=== PATIENT | female | born 1955 | race Caucasian/White ===

== ENCOUNTER 2020-05-19 08:02 | Emergency (ER) | payer OTHER, SELFPAY ==
[2020-05-19 08:03] VITALS: BP 148/70; PULSE 73; RESP 16; TEMP 36.8; O2SAT 96; BMI 33.4
[2020-05-19 08:08] VITALS: BP 148/70; PULSE 73; RESP 16; TEMP 36.8; O2SAT 96
--- NOTE | 2020-05-19 08:09 | RAD_ITS ---
STUDY: X-RAY CHEST REASON FOR EXAM: Female, 65 years old. Fever, body aches, loss of taste and smell, MENDEZ, muscle pain -- x 6-7 days TECHNIQUE: AP COMPARISON: None. FINDINGS: EKG leads project over the chest. The lungs are clear and expanded. There is no demonstrated pleural abnormality. Normal size heart. Normal mediastinum and adam. Normal visualized pulmonary arteries. Normal visualized aortic arch and descending thoracic aorta. There are diffuse degenerative changes of the visualized thoracic spine. Normal visualized ribs, clavicles, and shoulders. There is no demonstrated abnormality of the visualized soft tissue structures of the upper abdomen. RAD/Chest 1 View (Portable) IMPRESSION: Nonacute portable x-ray examination of the chest. Electronically Signed: Clive Mendez MD (Brooks) at 9:21 EDT , Service support ,
--- NOTE | 2020-05-19 08:09 | EKG12_ITS ---
Test Reason : GENERAL ILLNESS Blood Pressure : / mmHG Vent. Rate : 070 BPM Atrial Rate : 070 BPM P-R Int : 154 ms QRS Dur : 100 ms QT Int : 404 ms P-R-T Axes : 042 -41 050 degrees QTc Int : 436 ms Normal sinus rhythm Left axis deviation Minimal voltage criteria for LVH, may be normal variant Poor R- wave Progression Abnormal ECG Confirmed by GILLIAN MASON, ARTURO ([id number]), photography editor ROMULO EM ([id number]) on 05/21/2020 12:58:01 PM Referred By: Confirmed By:ARTURO FRENCH MD
[2020-05-19 08:10] VITALS: RESP 16
[2020-05-19 08:12] VITALS: O2SAT 96
--- NOTE | 2020-05-19 08:13 | ED.VISSUMM ---
- ER Visit Summary Date of Service: 05/19/20 Chief Complaint: Fever, cough History of Present Illness: The patient is a 65 F presenting with fever, cough. Patient states she went to a wedding approximately 10 days ago. She states no one at the wedding was wearing a mask. 3 days following the wedding she started having a cough. She felt okay other than a cough for several days. She then started having body aches, fever. She lost her sense of taste and smell. She has had diarrhea. She took aspirin and Aleve prior to arrival. She denies chest pain. Denies other complaints. Her and 2 daughters who live with her also have symptoms of viral illness. Physical Examination: Vitals are stable. Patient is afebrile. Alert no acute distress. Pulse ox 96% on room air. HEENT exam is unremarkable. Neck is supple. Lungs are clear and equal bilaterally. Heart is regular rate and rhythm. Abdomen is soft nontender nondistended. Extremities are unremarkable. Skin is warm and dry. No focal neurologic deficit. Remainder of exam is unremarkable. Emergency Department Course and Treatment: Patient was given IV fluids. EKG is sinus rhythm rate of 70 with no acute ischemic changes. CBC shows white count 3.5, platelet 137. Chemistries unremarkable. Urinalysis unremarkable. Troponin is negative. Chest x-ray shows no acute process. Patient feels improved following fluids. Her ambulatory pulse ox is 96% on room air. She is advised to quarantine and social distance. COVID test was sent. Advised to follow-up with PCP. Advised return to ED for worsening complaints. Disposition: Discharge home Impression: Viral illness, suspect COVID This note was generated with Pinpoint MD dictation software. It may contain incorrect words, spelling, and punctuation that were not noted in review of the chart prior to signing
[2020-05-19] MEDS: 0.9% Normal Saline 1,000 ML 1000 ML IV (08:28)
[2020-05-19 08:37] LABS: Absolute Neutrophil Count 2.7 X10^3/uL (2.0-7.7); Basophil# 0.01 X10^3/uL; Basophil% 0.3 % (0-1); Hemoglobin 13.1 g/dL (12.0-15.0); Lymphocyte % 17.3 % (19-41); Mean Corp Hgb Conc 32.8 g/dL (32-36); Mean Corpuscular Hgb 29.7 pg (27.0-32.0); Mean Corpuscular Volume 90.7 fL (81-99); Mean Platelet Vol. 9.9 fl (6.2-12.0); Monocyte# 0.18 X10^3/uL; Monocyte% 5.2 % (0-10); NRBC Flagged by Analyzer 0 % (0-5); Neutrophil # 2.67 X10^3/uL (2.7-7.7); Neutrophil % 77.2 % (47-70); POSITIVE DIFFERENTIAL YES; POSITIVE MORPHOLOGY YES; Platelet Count 137 K/mm3 (150-450); RBC Distribution Width CV 12.9 % (11.6-14.6); RBC Distribution Width SD 43.1 fl (35.1-43.9); Red Blood Count 4.41 M/mm3 (4.2-5.4); White Blood Count 3.5 K/mm3 (4.4-11.0)
[2020-05-19 08:38] LABS: Differential Indicated SCAN CRITERIA MET
[2020-05-19 09:02] LABS: Differential Comment SCANNED
[2020-05-19 09:35] LABS: Bacteria 0 SEEN /hpf (None Seen); Mucous, Urine 0 SEEN /hpf (<or=2+); Red Blood Cells-Urine 0 SEEN /hpf (0-5)
[2020-05-19 09:39] LABS: Color, Urine Yellow (Yellow); Glucose, Dipstick Normal (Normal); Ketone-Dipstick Negative (Negative); Leukocyte Esterase-Dipstick 100 /ul (Negative); Nitrite-Dipstick Negative (Negative); Occult Blood-Urine Negative /ul (Negative); Protein-Dipstick Negative (Negative); Urine Bilirubin Dipstick Negative (Negative); Urine Clarity Clear (Clear); Urine Urobilinogen Normal (Normal)
[2020-05-19 09:41] LABS: Anion Gap 4 (5-15); BUN 13 mg/dL (7-18); BUN/Creat Ratio 18.4 RATIO (10-20); Calcium,Total 8.1 mg/dL (8.5-10.1); Chloride 107 mmol/L (98-107); Creatinine, Serum 0.71 mg/dL (0.55-1.02); EST Glomerular Filtration Rate 89 mL/min (>60); Est Glom Filt Rate - Afr Amer 107 mL/min (>60); Estimated Creatinine Clearance 63.31 ml/min; Glucose 102 mg/dL (74-106); Potassium 3.9 mmol/L (3.5-5.1); Sodium Level 138 mmol/L (136-145)
[2020-05-19 09:59] LABS: Squamous Epithelial Cells - UA 0-5 SEEN /hpf (5-10); White Blood Cells 0-5 SEEN /hpf (0-5)
--- NOTE | 2020-05-19 10:12 | ED.DEP ---
ED Disposition - Plan for ED Patient: Instructions: ED Viral Syndrome Referrals: Zeus Ahuja DO [Primary Care Provider] -
[2020-05-19 10:35] VITALS: BP 154/77; PULSE 73; RESP 18; O2SAT 98
[2020-05-20 12:05] LABS: Pathologist Review Reviewed
== END 2020-05-19 10:38 | disposition home or self-care (01) ==
PROVIDERS: Emergency Provider Emergency Medicine; PCP Family Medicine
DX: U07.1 COVID-19 (principal)
CPT/HCPCS: 71045; 80048; 81001; 84484; 85025; 87635; 93005; 99285; J7030; U0003

== ENCOUNTER 2021-02-17 19:14 | Emergency (ER) | payer OTHER, SELFPAY ==
[2021-02-17 19:15] VITALS: BP 192/85; PULSE 80; RESP 14; TEMP 36.6; O2SAT 99; BMI 35.0
[2021-02-17 20:09] LABS: Absolute Lymphocyte Count 0.88 X10^3/uL (0.83-4.51); Absolute Neutrophil Count 3.4 X10^3/uL (2.0-7.7); Basophil# 0.01 X10^3/uL; Basophil% 0.2 % (0-1); Eosinophil# 0.08 X10^3/uL; Eosinophils% 1.6 % (0-5); Hematocrit 35.5 % (37-47); Hemoglobin 11.4 g/dL (12.0-15.0); Lymphocyte # 0.88 X10^3/ul (0.83-4.51); Mean Corp Hgb Conc 32.1 g/dL (32-36); Mean Corpuscular Hgb 30.7 pg (27.0-32.0); Mean Corpuscular Volume 95.7 fL (81-99); Mean Platelet Vol. 9.9 fl (6.2-12.0); Monocyte# 0.53 X10^3/uL; Monocyte% 10.8 % (0-10); NRBC Flagged by Analyzer 0 % (0-5); Neutrophil # 3.37 X10^3/uL (2.7-7.7); Platelet Count 195 K/mm3 (150-450); RBC Distribution Width CV 13.2 % (11.6-14.6); RBC Distribution Width SD 46.9 fl (35.1-43.9); Red Blood Count 3.71 M/mm3 (4.2-5.4); White Blood Count 4.9 K/mm3 (4.4-11.0)
--- NOTE | 2021-02-17 20:12 | EX.ED.DYSGE1 ---
HPI History of Present Illness Chief Complaint: Abd Pain Informant: patient Narrative Narrative: Patient is a 65-year-old previously healthy female who presents to the emergency department for diarrhea that started 3 days ago. She states she had around 6 episodes the first day. Has been mildly improving but returned tonight with multiple episodes. This is nonbloody diarrhea. No melena. She has not been nauseous or vomiting. She does get abdominal discomfort with this. She denies any significant abdominal pain. No back pain. No urinary symptoms. She has had subjective fevers and chills. She denies a cough. No chest pain, shortness of breath. She has been feeling mildly lightheaded. No known sick contacts. No recent travel or antibiotic use. PFSH [facility] Home Medications NK 05/19/20 [History Last Taken Unknown] Allergy/AdvReac Type Severity Reaction Status Date / Time No Known Allergies Allergy Verified 02/17/21 19:15 Social History Smoking Status: Never smoker ROS ROS ED Eyes Eyes: Denies change in vision ENT ENT ED: Denies epistaxis or rhinorrhea Cardiovascular Cardiovascular: Denies chest pain or palpitations Respiratory/Chest Respiratory/Chest: Denies cough, dyspnea or dyspnea on exertion Gastrointestinal Gastrointestinal: Reports diarrhea; Denies abdominal pain, constipation, melena, nausea or vomiting Genitourinary Genitourinary ED: Denies dysuria, hematuria or urinary frequency Musculoskeletal Musculoskeletal: Denies back pain or neck pain Integumentary Denies rash Neurologic Neurologic: Denies dizziness, headache(s) or weakness EXAM Physical Exam Const Vital Signs: 02/17/21 19:15 Temperature 98 F Temperature Source Temporal Pulse Rate 80 Respiratory Rate 14 Blood Pressure 192/85 H Blood Pressure Mean 120 Pulse Ox 99 Oxygen Delivery Method Room Air Positive well nourished and well developed General Appearance ED: well developed and NAD HEENT Reports normocephalic and head/scalp atraumatic Eyes PERRL and EOMs intact bilaterally Neck supple Resp normal respiratory effort and clear to auscultation bilaterally Auscultation: Negative for rales, rhonchi or wheezes Cardio regular rate, regular rhythm and no murmurs GI normal to inspection, nondistended, normoactive bowel sounds and non-tender Palpation: soft; Negative for guarding or rebound tenderness present Back/Spine no CVA tenderness Extremity normal to inspection General Extremety ED: Negative for edema or tenderness General Extremity: Negative for edema Neuro no sensory deficits noted Sensorium / Orientation: alert Motor Exam: strength 5/5 throughout Psych mental status grossly normal Skin no rashes or lesions noted MDM MDM MDM Narrative Medical decision making narrative: Patient presents to the ED for diarrhea over the past 3 days. Upon arrival to the emerge department she is hypertensive. Otherwise normal vital signs. She is had subjective fevers but she is afebrile here. Will check basic lab work and check stool cultures. I do not feel IV fluid is indicated at this time as she has normal vital signs, not tachycardic or hypotensive. She does not appear clinically dehydrated. Will check electrolyte status. Patient's lab work revealed her to be mildly anemic. Her chloride was mildly high but otherwise no significant electrolyte abnormality. Patient resting comfortably throughout ED stay. Stool sample obtained. Will contact if anything comes back positive. Recommend symptomatic treatment in the meantime. She is to follow-up with her PCP. Return precautions are reviewed including developing any systemic symptoms, severe abdominal pain. She understands and is agreeable this plan. Discharged home in stable condition. All questions were answered. Lab Data Labs: Laboratory Results - last 24 hr 02/17/21 02/17/21 19:55 19:55 WBC 4.9 RBC 3.71 L Hgb 11.4 L Hct 35.5 L MCV 95.7 MCH 30.7 MCHC 32.1 RDW Std Deviation 46.9 H RDW Coeff of [place] 13.2 Plt Count 195 MPV 9.9 Immature Gran % (Auto) 0.400 Neut % (Auto) 69.0 Lymph % (Auto) 18.0 L [place] % (Auto) 10.8 H Eos % (Auto) 1.6 Baso % (Auto) 0.2 Absolute Neuts (auto) 3.4 Absolute Lymphs (auto) 0.88 Nucleated RBC % 0 Sodium 144 Potassium 4.0 Chloride 112 H Carbon Dioxide 28.0 Anion Gap 4 L BUN 8 Creatinine 0.71 Estim Creat Clear Calc 63.31 Est GFR (MDRD) Af Amer 106 Est GFR (MDRD) Non-Af 87 BUN/Creatinine Ratio 11.2 Glucose 103 Calcium 8.5 Total Bilirubin 0.30 AST 21 ALT 20 Alkaline Phosphatase 69 Total Protein 6.9 Albumin 3.5 Globulin 3.4 Albumin/Globulin Ratio 1.0 Discharge Plan Triage Chief Complaint: Abd Pain ED Provider: Broderick Fermin Dx/Rx/DC Orders Clinical Impression: Diarrhea Instructions: ED Diarrhea, Unknown Cause Prescriptions: No Action NK RF: 0 Primary Care Provider: Zeus Ahuja Referrals: Zeus Ahuja, [Primary Care Provider] - 3-5 Days if not improving Disposition Disposition: Home, Self Care
[2021-02-17 20:26] LABS: AST(SGOT) 21 U/L (15-37); Alanine Aminotransfer ALT/SGPT 20 U/L (13-56); Albumin, Serum 3.5 g/dL (3.2-5.0); Alkaline Phosphatase 69 U/L (45-117); Anion Gap 4 (5-15); BUN 8 mg/dL (7-18); BUN/Creat Ratio 11.2 RATIO (10-20); Calcium,Total 8.5 mg/dL (8.5-10.1); Chloride 112 mmol/L (98-107); Creatinine, Serum 0.71 mg/dL (0.55-1.02); EST Glomerular Filtration Rate 87 mL/min (>60); Est Glom Filt Rate - Afr Amer 106 mL/min (>60); Estimated Creatinine Clearance 63.31 ml/min; Globulin 3.4 g/dL (2.2-4.2); Glucose 103 mg/dL (74-106); Protein, Total 6.9 g/dL (6.4-8.2); Sodium Level 144 mmol/L (136-145)
--- NOTE | 2021-02-18 11:12 | ED.RN ---
MICRO RESULT CAME BACK TODAY FOR CAMPYLOBACTER IN STOOL. PT CALLED AND INFORMED OF RESULT. PT INFORMED THE ER PHYSICIAN IS PRESCRIBING AZITHROMYCIN FOR THREE DAY AND IT WOULD BE SENT TO THE PHARMACY OF HER CHOICE.
== END 2021-02-17 21:27 | disposition home or self-care (01) ==
PROVIDERS: Emergency Provider Emergency Medicine; PCP Family Medicine
DX: R19.7 Diarrhea, unspecified (principal); R10.9 Unspecified abdominal pain
CPT/HCPCS: 80053; 85025; 87493; 87506; 99283; A4216

== ENCOUNTER 2021-02-23 17:59 | Emergency (ER) | payer OTHER, SELFPAY ==
[2021-02-23 17:59] VITALS: BP 167/84; PULSE 77; RESP 18; TEMP 36.6; O2SAT 97; BMI 33.7
[2021-02-23 18:54] VITALS: BP 167/84; PULSE 77; RESP 18; TEMP 36.6; O2SAT 97
[2021-02-23 18:56] LABS: Bacteria 0 SEEN /hpf (None Seen); Mucous, Urine 0 SEEN /hpf (<or=2+); Red Blood Cells-Urine 0 SEEN /hpf (0-5); White Blood Cells 0 SEEN /hpf (0-5)
[2021-02-23 18:58] LABS: Absolute Lymphocyte Count 1.12 X10^3/uL (0.83-4.51); Basophil# 0.04 X10^3/uL; Basophil% 0.5 % (0-1); Eosinophil# 0.08 X10^3/uL; Hematocrit 38.3 % (37-47); Hemoglobin 12.8 g/dL (12.0-15.0); Lymphocyte # 1.12 X10^3/ul (0.83-4.51); Lymphocyte % 14.3 % (19-41); Mean Corp Hgb Conc 33.4 g/dL (32-36); Mean Corpuscular Hgb 30.8 pg (27.0-32.0); Mean Corpuscular Volume 92.3 fL (81-99); Mean Platelet Vol. 9.7 fl (6.2-12.0); Monocyte# 0.46 X10^3/uL; Monocyte% 5.9 % (0-10); NRBC Flagged by Analyzer 0 % (0-5); Neutrophil # 6.02 X10^3/uL (2.7-7.7); Neutrophil % 76.9 % (47-70); Platelet Count 269 K/mm3 (150-450); RBC Distribution Width CV 12.9 % (11.6-14.6); RBC Distribution Width SD 43.4 fl (35.1-43.9); Red Blood Count 4.15 M/mm3 (4.2-5.4); White Blood Count 7.8 K/mm3 (4.4-11.0)
[2021-02-23 18:59] LABS: Color, Urine Yellow (Yellow); Glucose, Dipstick Normal (Normal); Ketone-Dipstick Negative (Negative); Leukocyte Esterase-Dipstick Negative /ul (Negative); Nitrite-Dipstick Negative (Negative); Occult Blood-Urine Negative /ul (Negative); Protein-Dipstick Negative (Negative); Urine Bilirubin Dipstick Negative (Negative); Urine Clarity Clear (Clear); Urine Urobilinogen Normal (Normal)
[2021-02-23 19:16] LABS: Squamous Epithelial Cells - UA 0-5 SEEN /hpf (5-10)
[2021-02-23 19:21] LABS: ALB/GLOB Ratio 1.1 RATIO (0.9-2.4); AST(SGOT) 24 U/L (15-37); Alanine Aminotransfer ALT/SGPT 24 U/L (13-56); Albumin, Serum 3.9 g/dL (3.2-5.0); Alkaline Phosphatase 70 U/L (45-117); Anion Gap 7 (5-15); BUN 9 mg/dL (7-18); BUN/Creat Ratio 10.7 RATIO (10-20); Calcium,Total 8.9 mg/dL (8.5-10.1); Chloride 107 mmol/L (98-107); Creatinine, Serum 0.84 mg/dL (0.55-1.02); EST Glomerular Filtration Rate 73 mL/min (>60); Est Glom Filt Rate - Afr Amer 88 mL/min (>60); Estimated Creatinine Clearance 53.51 ml/min; Globulin 3.6 g/dL (2.2-4.2); Glucose 140 mg/dL (74-106); Protein, Total 7.5 g/dL (6.4-8.2); Sodium Level 139 mmol/L (136-145)
--- NOTE | 2021-02-23 21:04 | EDS_ITS ---
HPI History of Present Illness Chief Complaint: Weakness Narrative Narrative: Patient presented early last week with diarrhea. She states that she was treated with antibiotics from the ED. Her diarrhea has resolved. She has no constipation and is having fairly solid stools. She has no nausea or vomiting. She is eating and drinking normally. She making normal urine and stool. She denies shortness of breath, chest pain, abdominal pain. She is able to ambulate without difficulty. She states she is just generally weak. PFSH PFSH Allergy/AdvReac Type Severity Reaction Status Date / Time No Known Allergies Allergy Verified 02/23/21 18:01 Social History Smoking Status: Never smoker ROS ROS ED Constitutional Constitutional ED: Reports other Details: Generalized weakness ; Denies chills or fever(s) Eyes Eyes: Denies blurry vision ENT ENT ED: Denies ear pain Cardiovascular Cardiovascular: Denies chest pain or palpitations Respiratory/Chest Respiratory/Chest: Denies cough, dyspnea or sputum Gastrointestinal Gastrointestinal: Denies abdominal pain, constipation, diarrhea, nausea or vomiting Genitourinary Genitourinary ED: Denies dysuria, hematuria or urinary frequency Musculoskeletal Musculoskeletal: Denies arthralgias Integumentary Denies abscess or rash Neurologic Neurologic: Denies headache(s) or paresthesias Psychiatric Psychiatric: Denies anxiety or depression EXAM Physical Exam Const Vital Signs: 02/23/21 17:59 02/23/21 18:54 Temperature 97.9 F 97.9 F Temperature Source Temporal Temporal Pulse Rate 77 77 Respiratory Rate 18 18 Respiratory Effort Normal Non-Labored Respiratory Pattern Normal Blood Pressure 167/84 H 167/84 H Blood Pressure Mean 111 111 Pulse Ox 97 97 Oxygen Delivery Method Room Air Room Air Positive well nourished General Appearance ED: NAD; Negative for pallor HEENT Reports normocephalic, head/scalp atraumatic and moist mucous membranes Eyes PERRL and EOMs intact bilaterally Neck no lymphadenopathy and supple Chest Wall inspection of chest normal and palpation of chest normal Resp normal respiratory effort and clear to auscultation bilaterally Auscultation: Negative for rales, rhonchi or wheezes Cardio regular rate and regular rhythm GI normal to inspection, nondistended, normoactive bowel sounds and non-distended Auscultation: normoactive bowel sounds Palpation: soft Narrative: Deferred Extremity normal to inspection General Extremety ED: Yes edema and tenderness General Extremity: edema Neuro oriented x3 and CN's II-XII intact bilaterally Sensorium / Orientation: alert Motor Exam: strength 5/5 throughout Psych mental status grossly normal Attitude: No agitated Skin no rashes or lesions noted and no wounds General Skin Exam: Negative for jaundice or pallor MDM MDM MDM Narrative Medical decision making narrative: Patient presented with generalized weakness but otherwise has no symptoms. She is able to ambulate. She is eating and drinking normally. She has no chest pain or shortness of breath. She has no abdominal pain. She has no urinary complaints. Her diarrhea is improved. Lab work here today is unremarkable. Patient's vital signs are stable and she is afebrile. I feel she is stable for discharge home. She is counseled to follow- up with her primary care physician to ensure resolution. Impression: 1. Generalized weakness Lab Data Attestation: I reviewed the patient's lab results. Labs: Laboratory Results - last 24 hr 02/23/21 02/23/21 02/23/21 18:48 18:48 18:48 WBC 7.8 RBC 4.15 L Hgb 12.8 Hct 38.3 MCV 92.3 MCH 30.8 MCHC 33.4 RDW Std Deviation 43.4 RDW Coeff of [place] 12.9 Plt Count 269 MPV 9.7 Immature Gran % (Auto) 1.400 H Neut % (Auto) 76.9 H Lymph % (Auto) 14.3 L [place] % (Auto) 5.9 Eos % (Auto) 1.0 Baso % (Auto) 0.5 Absolute Neuts (auto) 6.0 Absolute Lymphs (auto) 1.12 Nucleated RBC % 0 Sodium 139 Potassium 4.0 Chloride 107 Carbon Dioxide 25.0 Anion Gap 7 BUN 9 Creatinine 0.84 Estim Creat Clear Calc 53.51 Est GFR (MDRD) Af Amer 88 Est GFR (MDRD) Non-Af 73 BUN/Creatinine Ratio 10.7 Glucose 140 H Calcium 8.9 Total Bilirubin 0.20 AST 24 ALT 24 Alkaline Phosphatase 70 Total Protein 7.5 Albumin 3.9 Globulin 3.6 Albumin/Globulin Ratio 1.1 Urine Color Yellow Urine Clarity Clear Urine pH 6.0 Ur Specific [place] 1.010 Urine Protein Negative Urine Glucose (UA) Normal Urine Ketones Negative Urine Occult Blood Negative Urine Nitrite Negative Urine Bilirubin Negative Urine Urobilinogen Normal Ur Leukocyte Esterase Negative Urine RBC 0 SEEN Urine WBC 0 SEEN Ur Squamous Epith Cells 0-5 SEEN Urine Bacteria 0 SEEN Urine Mucus 0 SEEN Discharge Plan Triage Chief Complaint: Weakness ED Provider: Jet Means Dx/Rx/DC Orders Instructions: ED Weakness (Uncertain Cause) Primary Care Provider: Zeus Ahuja Referrals: Zeus Ahuja, [Primary Care Provider] - Disposition Disposition: Home, Self Care
[2021-02-23 21:26] VITALS: RESP 16
== END 2021-02-23 21:27 | disposition home or self-care (01) ==
PROVIDERS: Emergency Provider Student in an Organized Health Care Education/Training Program; PCP Family Medicine
DX: R53.1 Weakness (principal)
CPT/HCPCS: 80053; 81001; 85025; 99282; J7030; A4216

== ENCOUNTER 2021-04-03 09:39 | Emergency (ER) | payer OTHER, SELFPAY ==
[2021-04-03 09:40] VITALS: BP 174/83; PULSE 82; RESP 18; TEMP 36.9; O2SAT 98; BMI 33.2
[2021-04-03 09:43] VITALS: BP 174/83; PULSE 82; RESP 18; TEMP 36.9; O2SAT 98
--- NOTE | 2021-04-03 10:44 | EX.ED.DYSGE1 ---
HPI History of Present Illness Chief Complaint: Weakness Informant: patient Narrative Narrative: Patient is a 65-year-old Al[place] female with a history of hypertension who presents to the emergency department for generalized weakness. She states that this has been present over the past 5 days. She was seen in the emergency department previously last month for the same complaint. This all started after she was diagnosed with a GI infection. She developed some loose stools and mild abdominal discomfort this weekend and her PCP put her on Bactrim and Flagyl. She denies any change in bowel movements currently. No abdominal pain. No fevers or chills. She denies any chest pain or shortness of breath. No nausea or vomiting. She states she just overall feels generally weak. [facility] Medical History (Updated 04/03/21 @ 12:[address] Broderick Fermin DO) Hypertension Home Medications hydrochlorothiazide 12.5 mg PO DAILY 04/03/21 [History Last Taken Unknown] Allergy/AdvReac Type Severity Reaction Status Date / Time No Known Allergies Allergy Verified 04/03/21 09:45 Social History Smoking Status: Never smoker ROS ROS ED Constitutional Constitutional ED: Denies chills or fever(s) ENT ENT ED: Denies epistaxis or rhinorrhea Cardiovascular Cardiovascular: Denies chest pain or palpitations Respiratory/Chest Respiratory/Chest: Denies cough, dyspnea or dyspnea on exertion Gastrointestinal Gastrointestinal: Denies abdominal pain, diarrhea, nausea or vomiting Genitourinary Genitourinary ED: Denies dysuria, hematuria or urinary frequency Musculoskeletal Musculoskeletal: Denies back pain or neck pain Integumentary Denies rash Neurologic Neurologic: Reports weakness; Denies dizziness or headache(s) EXAM Physical Exam Const Vital Signs: 04/03/21 09:40 04/03/21 09:43 04/03/21 10:52 Temperature 98.4 F 98.4 F 97.8 F Temperature Source Oral Oral Oral Pulse Rate 82 82 71 Respiratory Rate 18 18 15 Respiratory Effort Respiratory Pattern Blood Pressure 174/83 H 174/83 H 177/73 H Blood Pressure Mean 113 113 107 Pulse Ox 98 98 98 Oxygen Delivery Method Room Air Room Air Room Air 04/03/21 12:16 Temperature Temperature Source Pulse Rate 69 Respiratory Rate 17 Respiratory Effort Normal Non-Labored Respiratory Pattern Normal Blood Pressure 169/84 H Blood Pressure Mean Pulse Ox 99 Oxygen Delivery Method Positive well nourished and well developed General Appearance ED: well developed and NAD HEENT Reports normocephalic and head/scalp atraumatic Eyes PERRL and EOMs intact bilaterally Neck supple General: Negative for tenderness Chest Wall inspection of chest normal Resp normal respiratory effort and clear to auscultation bilaterally Auscultation: Negative for rales, rhonchi or wheezes Cardio regular rate, regular rhythm and no murmurs GI normal to inspection, nondistended, normoactive bowel sounds and non-tender Palpation: soft; Negative for guarding or rebound tenderness present Back/Spine no CVA tenderness Extremity normal to inspection General Extremety ED: Negative for edema or tenderness General Extremity: Negative for edema Neuro Sensorium / Orientation: alert Motor Exam: strength 5/5 throughout Psych mental status grossly normal Skin no rashes or lesions noted MDM MDM MDM Narrative Medical decision making narrative: Patient presents to the emergency department for generalized weakness. On arrival to the ED she is hypertensive but otherwise normal vital signs. She has a benign physical exam. We will recheck basic lab work at this time. Patient's lab work did not reveal a significant acute abnormality. She is not anemic, she does not have a high white blood cell count. No electrolyte disturbance. Urine does not show any evidence of infection. Throughout course of ED stay patient is actually starting to feel better at this time. She does feel comfortable going home. Recommend she follow-up with her PCP. Return precautions are reviewed with her. She understands and is agreeable with this plan. All questions were answered. Lab Data Labs: Laboratory Results - last 24 hr 04/03/21 04/03/21 04/03/21 10:50 10:50 11:06 WBC 6.6 RBC 4.49 Hgb 14.0 Hct 42.3 MCV 94.2 MCH 31.2 MCHC 33.1 RDW Std Deviation 42.8 RDW Coeff of [place] 12.4 Plt Count 268 MPV 9.5 Immature Gran % (Auto) 0.300 Neut % (Auto) 79.6 H Lymph % (Auto) 12.6 L [place] % (Auto) 6.8 Eos % (Auto) 0.2 Baso % (Auto) 0.5 Absolute Neuts (auto) 5.2 Absolute Lymphs (auto) 0.83 Nucleated RBC % 0 Sodium 137 Potassium 3.5 Chloride 104 Carbon Dioxide 29.0 Anion Gap 4 L BUN 9 Creatinine 0.86 Estim Creat Clear Calc 52.27 Est GFR (MDRD) Af Amer 85 Est GFR (MDRD) Non-Af 71 BUN/Creatinine Ratio 10.5 Glucose 121 H Calcium 9.3 Total Bilirubin 0.20 AST 19 ALT 26 Alkaline Phosphatase 61 Troponin I High Sens 7 Total Protein 7.7 Albumin 4.0 Globulin 3.7 Albumin/Globulin Ratio 1.1 TSH 0.93 Urine Color Yellow Urine Clarity Clear Urine pH 6.0 Ur Specific [place] 1.010 Urine Protein Negative Urine Glucose (UA) Normal Urine Ketones Negative Urine Occult Blood 10 H Urine Nitrite Negative Urine Bilirubin Negative Urine Urobilinogen Normal Ur Leukocyte Esterase 25 H Urine RBC 0 SEEN Urine WBC 0 SEEN Ur Squamous Epith Cells 0 SEEN Urine Bacteria 0 SEEN Urine Mucus 0 SEEN Discharge Plan Triage Chief Complaint: Weakness ED Provider: Broderick Fermin Dx/Rx/DC Orders Clinical Impression: Generalized weakness Instructions: ED Weakness (Uncertain Cause) Prescriptions: No Action hydrochlorothiazide 12.5 mg Capsule 12.5 mg PO DAILY RF: 0 Primary Care Provider: Zeus Ahuja Referrals: Zeus Ahuja DO [Primary Care Provider] - 3-5 Days if not improving Disposition Disposition: Home, Self Care Discharge Date/Time: 04/03/21 12:23
[2021-04-03 10:52] VITALS: BP 177/73; PULSE 71; RESP 15; TEMP 36.6; O2SAT 98
[2021-04-03 10:55] LABS: Absolute Lymphocyte Count 0.83 X10^3/uL (0.83-4.51); Absolute Neutrophil Count 5.2 X10^3/uL (2.0-7.7); Basophil# 0.03 X10^3/uL; Basophil% 0.5 % (0-1); Eosinophil# 0.01 X10^3/uL; Eosinophils% 0.2 % (0-5); Hematocrit 42.3 % (37-47); Lymphocyte # 0.83 X10^3/ul (0.83-4.51); Lymphocyte % 12.6 % (19-41); Mean Corp Hgb Conc 33.1 g/dL (32-36); Mean Corpuscular Hgb 31.2 pg (27.0-32.0); Mean Corpuscular Volume 94.2 fL (81-99); Mean Platelet Vol. 9.5 fl (6.2-12.0); Monocyte# 0.45 X10^3/uL; Monocyte% 6.8 % (0-10); NRBC Flagged by Analyzer 0 % (0-5); Neutrophil # 5.24 X10^3/uL (2.7-7.7); Neutrophil % 79.6 % (47-70); Platelet Count 268 K/mm3 (150-450); RBC Distribution Width CV 12.4 % (11.6-14.6); RBC Distribution Width SD 42.8 fl (35.1-43.9); Red Blood Count 4.49 M/mm3 (4.2-5.4); White Blood Count 6.6 K/mm3 (4.4-11.0)
[2021-04-03 11:16] LABS: Bacteria 0 SEEN /hpf (None Seen); Mucous, Urine 0 SEEN /hpf (<or=2+); Red Blood Cells-Urine 0 SEEN /hpf (0-5); Squamous Epithelial Cells - UA 0 SEEN /hpf (5-10); White Blood Cells 0 SEEN /hpf (0-5)
[2021-04-03 11:18] LABS: Color, Urine Yellow (Yellow); Glucose, Dipstick Normal (Normal); Ketone-Dipstick Negative (Negative); Leukocyte Esterase-Dipstick 25 /ul (Negative); Nitrite-Dipstick Negative (Negative); Occult Blood-Urine 10 /ul (Negative); Protein-Dipstick Negative (Negative); Urine Bilirubin Dipstick Negative (Negative); Urine Clarity Clear (Clear); Urine Urobilinogen Normal (Normal)
[2021-04-03 11:20] LABS: ALB/GLOB Ratio 1.1 RATIO (0.9-2.4); AST(SGOT) 19 U/L (15-37); Alanine Aminotransfer ALT/SGPT 26 U/L (13-56); Alkaline Phosphatase 61 U/L (45-117); Anion Gap 4 (5-15); BUN 9 mg/dL (7-18); BUN/Creat Ratio 10.5 RATIO (10-20); Calcium,Total 9.3 mg/dL (8.5-10.1); Chloride 104 mmol/L (98-107); Creatinine, Serum 0.86 mg/dL (0.55-1.02); EST Glomerular Filtration Rate 71 mL/min (>60); Est Glom Filt Rate - Afr Amer 85 mL/min (>60); Estimated Creatinine Clearance 52.27 ml/min; Globulin 3.7 g/dL (2.2-4.2); Glucose 121 mg/dL (74-106); Potassium 3.5 mmol/L (3.5-5.1); Protein, Total 7.7 g/dL (6.4-8.2); Sodium Level 137 mmol/L (136-145); Thyroid Stim Hormone (TSH) 0.93 uIU/mL (0.358-3.74); Troponin-I HS 7 pg/mL (3.0-54.0)
[2021-04-03 12:16] VITALS: BP 169/84; PULSE 69; RESP 17; O2SAT 99
== END 2021-04-03 12:23 | disposition home or self-care (01) ==
PROVIDERS: Emergency Provider Emergency Medicine; PCP Family Medicine
DX: R53.1 Weakness (principal); I10 Essential (primary) hypertension; Z79.899 Other long term (current) drug therapy
CPT/HCPCS: 80053; 81001; 84443; 84484; 85025; 99285; A4216